=== PATIENT | female | born 2000 | race African-American/Black ===

== ENCOUNTER 2022-12-10 13:23 | Inpatient (IN) | payer OTHER ==
[~2022-12-10] VITALS: Ht 170.2 cm; Wt 93.4 kg
[2022-12-10 14:21] LABS: HEMATOCRIT 39.3 % (36.0-47.0); HEMOGLOBIN 12.7 g/dl (12.0-15.5); MEAN CORPUSCULAR HEMOGLOBIN 27.7 pg (27.0-33.0); MEAN CORPUSCULAR HGB CONC 32.3 g/dl (32.0-36.5); MEAN CORPUSCULAR VOLUME 85.8 fl (80.0-96.0); PLATELET COUNT, AUTOMATED 274 10^3/uL (150-450); RED BLOOD COUNT 4.58 10^6/uL (4.00-5.40); WHITE BLOOD COUNT 6.1 10^3/uL (4.0-10.0)
[2022-12-10 14:31] LABS: AMPHETAMINES LEVEL URINE NEGATIVE (NEGATIVE); BARBITURATES URINE NEGATIVE (NEGATIVE); BENZODIAZEPINES URINE NEGATIVE (NEGATIVE)
[2022-12-10 14:32] LABS: CANNABINOIDS URINE NEGATIVE (NEGATIVE); COCAINE METABOLITE URINE NEGATIVE (NEGATIVE); METHADONE URINE NEGATIVE (NEGATIVE); OPIATES URINE NEGATIVE (NEGATIVE); PHENCYCLIDINE URINE NEGATIVE (NEGATIVE)
[2022-12-10 14:33] LABS: ETHYL ALCOHOL (ETHANOL) < 0.003 % (0.000-0.010)
[2022-12-10 14:35] LABS: ACETAMINOPHEN LEVEL < 2.0 UG/ML (10.0-20.0); SALICYLATE LEVEL < 3.0 MG/DL (<30)
[2022-12-10 14:40] LABS: ALBUMIN 3.9 G/DL (3.2-5.2); ALKALINE PHOSPHATASE 116 U/L (46-116); ALT/SGPT 19 U/L (7.0-40); AST/SGOT 20 U/L (<34); BILIRUBIN,DIRECT < 0.1 MG/DL (<0.4); BILIRUBIN,TOTAL 0.4 MG/DL (0.3-1.2); BLOOD UREA NITROGEN 7 MG/DL (9-23); CALCIUM LEVEL 10.2 MG/DL (8.5-10.1); CARBON DIOXIDE LEVEL 28 MMOL/L (20-31); CHLORIDE LEVEL 104 MMOL/L (98-107); CREATININE FOR GFR 0.67 MG/DL (0.55-1.30); GLOMERULAR FILTRATION RATE > 60.0 (>60); GLUCOSE, FASTING 84 MG/DL (60-100); POTASSIUM SERUM 4.4 MMOL/L (3.5-5.1); SODIUM LEVEL 139 MMOL/L (136-145); THYROID STIMULATING HORMONE 1.386 uIU/ML (0.55-4.78); TOTAL PROTEIN 7.5 G/DL (5.7-8.2)
[2022-12-10 14:57] LABS: HCG, SERUM QUALITATIVE NEGATIVE (NEGATIVE)
[2022-12-10] MEDS ORDERED: RISP2TAB32 PO (16:28)
[2022-12-10] MEDS ORDERED: SERT25TA85 PO (16:28)
[2022-12-10] MEDS ORDERED: HOME MED LIST COMPLETE! XX SCH (16:35)
[2022-12-10] MEDS ORDERED: MOM 30ML SUSPENSION UDC PO PRN (21:00)
[2022-12-10] MEDS ORDERED: risperiDONE 2 MG TAB PO ONE (21:00)
[2022-12-10] MEDS ORDERED: ACETAMINOPHEN TAB 650MG DOSE (2X325MG) PO PRN (21:00)
[2022-12-10] MEDS ORDERED: MAALOX 30 ML SUSP *UDC PO PRN (21:00)
[2022-12-10 22:49] VITALS: BP 116/78
[2022-12-10] MEDS: risperiDONE 2 MG TAB PO SCH (23:03)
[2022-12-10] MEDS: LORazepam 1 MG TAB PO PRN (23:04)
[2022-12-11 06:13] VITALS: BP 111/65
[2022-12-11] MEDS ORDERED: SERTRALINE HCL 25 MG TABLET PO SCH ×2 (09:00)
[2022-12-11] MEDS ORDERED: risperiDONE 2 MG TAB PO SCH (09:00)
[2022-12-11] MEDS ORDERED: SERTRALINE HCL 25 MG TABLET PO ONE (09:00)
[2022-12-11] MEDS ORDERED: MIRALAX *UNIT DOSE* 17GM PACKET PO PRN (11:25)
[2022-12-11] MEDS ORDERED: SENNA 8.6 MG TAB (SENOKOT) PO PRN (11:25)
[2022-12-11 18:41] VITALS: BP 130/76
[2022-12-11] MEDS: LORazepam 1 MG TAB PO PRN (20:40)
[2022-12-11] MEDS: risperiDONE 2 MG TAB PO SCH (20:41)
[2022-12-12 06:24] VITALS: BP 138/73
[2022-12-12] MEDS: SERTRALINE HCL 50 MG TAB PO SCH (09:52)
[2022-12-12 18:47] VITALS: BP 152/84
[2022-12-12] MEDS: risperiDONE 2 MG TAB PO SCH (20:11)
[2022-12-12] MEDS: LORazepam 1 MG TAB PO PRN (20:13)
[2022-12-12] MEDS: traZODone 50 MG TAB PO PRN (21:46)
[2022-12-13 06:30] VITALS: BP 143/78
[2022-12-13] MEDS: SERTRALINE HCL 50 MG TAB PO SCH (09:12)
[2022-12-13] MEDS ORDERED: hydrOXYzine 50 MG TAB PO PRN (09:20)
[2022-12-13 16:48] VITALS: BP_SYST 133; BP_SYST 142; BP_DIAS 79; BP_DIAS 81
[2022-12-13] MEDS: traZODone 50 MG TAB PO PRN (21:37)
[2022-12-13] MEDS: risperiDONE 2 MG TAB PO SCH (21:37)
[2022-12-13] MEDS: PRAZOSIN 1 MG CAP PO SCH (21:38)
[2022-12-14 06:41] VITALS: BP 126/75
[2022-12-14] MEDS: SERTRALINE HCL 50 MG TAB PO SCH (08:09)
[2022-12-14 16:30] VITALS: BP 135/63
[2022-12-14] MEDS: risperiDONE 2 MG TAB PO SCH (20:58)
[2022-12-14] MEDS: traZODone 50 MG TAB PO PRN (20:58)
[2022-12-14] MEDS: PRAZOSIN 1 MG CAP PO SCH (20:59)
[2022-12-15 06:38] VITALS: BP 114/66
[2022-12-15 07:41] LABS: CHOLESTEROL RISK RATIO 3.27 (<5); HDL CHOLESTEROL 60.1 MG/DL (>40); LDL CHOLESTEROL 113.9 MG/DL (<100)
[2022-12-15] MEDS: SERTRALINE HCL 50 MG TAB PO SCH (08:22)
[2022-12-15 16:29] VITALS: BP 131/73
[2022-12-15 21:28] VITALS: BP 140/77
[2022-12-15] MEDS: PRAZOSIN 1 MG CAP PO SCH (21:28)
[2022-12-15] MEDS: risperiDONE 2 MG TAB PO SCH (21:28)
[2022-12-15] MEDS: traZODone 50 MG TAB PO PRN (21:28)
[2022-12-16 06:32] VITALS: BP 123/67
[2022-12-16] MEDS ORDERED: RISP2TAB32 PO (08:23)
[2022-12-16] MEDS ORDERED: SERT50TA29 PO (08:23)
[2022-12-16] MEDS ORDERED: MINI1CAP PO (08:23)
[2022-12-16] MEDS ORDERED: TRAZ-252 PO (08:23)
[2022-12-16] MEDS ORDERED: HYDR50TA70 PO (08:23)
[2022-12-16] MEDS: SERTRALINE HCL 50 MG TAB PO SCH (09:19)
== END 2022-12-16 13:45 | disposition home or self-care (01) | DRG 885 ==
LOC: M ED 13:23 → M ED INP 20:57 → M PSY 22:05
PROVIDERS: ADMIT Student in an Organized Health Care Education/Training Program; ATTEND Student in an Organized Health Care Education/Training Program
DX: F32.3 Major depressive disorder, single episode, severe with psychotic features (principal); Z91.410 Personal history of adult physical and sexual abuse; R48.0 Dyslexia and alexia; Z81.8 Family history of other mental and behavioral disorders; K59.00 Constipation, unspecified; Z79.899 Other long term (current) drug therapy; F43.10 Post-traumatic stress disorder, unspecified; Z63.8 Other specified problems related to primary support group

== ENCOUNTER 2023-04-07 15:50 | Emergency (ER) | payer OTHER ==
[~2023-04-07] VITALS: Ht 167.6 cm; Wt 97.1 kg
[~2023-04-07 15:50] MED LIST: HYDR50TA70 PO; MINI1CAP PO; RISP2TAB32 PO; SERT25TA85 PO; SERT50TA29 PO; TRAZ-252 PO
[2023-04-07] MEDS ORDERED: ACET-840 (16:00)
[2023-04-07] MEDS ORDERED: CYCL-707 (16:00)
[2023-04-07] MEDS ORDERED: METH-1165 (16:00)
[2023-04-07] MEDS ORDERED: MELO15TA28 (16:00)
[2023-04-07] MEDS ORDERED: KETOROLAC TROMETHAMINE 10 MG TAB PO ONE (17:10)
[2023-04-07] MEDS ORDERED: BACTRIM 160MG/800MG DS TAB PO ONE (17:10)
[2023-04-07] MEDS ORDERED: IBUP80TA PO (17:14)
[2023-04-07] MEDS ORDERED: BACT800T5 PO (17:14)
[2023-04-07 17:25] VITALS: BP 127/82; TEMP 97.4; O2SAT 100
== END 2023-04-07 17:28 | disposition home or self-care (01) ==
LOC: M ED 15:50
DX: L05.01 Pilonidal cyst with abscess (principal); L03.317 Cellulitis of buttock; F32.A Depression, unspecified; F41.9 Anxiety disorder, unspecified; F43.10 Post-traumatic stress disorder, unspecified

== ENCOUNTER 2023-04-09 19:11 | Emergency (ER) | payer OTHER ==
[~2023-04-09] VITALS: Ht 167.6 cm; Wt 95.5 kg
[~2023-04-09 19:11] MED LIST changes: +ACET-840; +BACT800T5 PO; +CYCL-707; +IBUP80TA PO; +MELO15TA28; +METH-1165
[2023-04-09] MEDS ORDERED: MORPHINE 4 MG/ML 1ML VIAL IV ONE (19:45)
[2023-04-09 20:14] LABS: HEMATOCRIT 35.1 % (36.0-47.0); HEMOGLOBIN 11.4 g/dl (12.0-15.5); MEAN CORPUSCULAR HEMOGLOBIN 27.1 pg (27.0-33.0); MEAN CORPUSCULAR HGB CONC 32.5 g/dl (32.0-36.5); MEAN CORPUSCULAR VOLUME 83.4 fl (80.0-96.0); PLATELET COUNT, AUTOMATED 344 10^3/uL (150-450); RED BLOOD COUNT 4.21 10^6/uL (4.00-5.40)
[2023-04-09 20:45] LABS: HCG, SERUM QUALITATIVE NEGATIVE (NEGATIVE)
[2023-04-09] MEDS ORDERED: ISOVUE-370 76% 100ML VIAL As Ordered ONE (20:56)
[2023-04-09] MEDS ORDERED: LIDOCAINE 1% MDV 20ML VIAL SC ONE (21:50)
[2023-04-09] MEDS ORDERED: MORPHINE 2 MG/ML 1ML VIAL IV ONE (22:20)
[2023-04-09] MEDS ORDERED: CLINDAMYCIN 150MG CAPSULE PO ONE (23:30)
[2023-04-09] MEDS ORDERED: NS 1,000 ML IV ONE (23:30)
[2023-04-10 00:37] VITALS: BP 150/73; O2SAT 98
[2023-04-10] MEDS ORDERED: TRAM50TA2 PO (00:40)
[2023-04-10] MEDS ORDERED: CLEO300C2 PO ×2 (00:40→01:31)
[2023-04-10] MEDS ORDERED: ACETAMINOPHEN 500 MG TAB PO ONE (00:45)
[2023-04-10 01:30] VITALS: TEMP 99.2
[2023-04-10] MEDS ORDERED: traMADol 50 MG TAB (HOME DOSE PACK) PO ONE (01:30)
== END 2023-04-10 01:43 | disposition home or self-care (01) ==
LOC: M ED 19:11
DX: L05.01 Pilonidal cyst with abscess (principal); F43.10 Post-traumatic stress disorder, unspecified; F41.9 Anxiety disorder, unspecified; Z79.2 Long term (current) use of antibiotics; Z79.899 Other long term (current) drug therapy
CPT/HCPCS: 72193; 83605; 84703; 85027; 87040; 96361; 96372; 96374; 96375; 99284; Q9967